=== PATIENT | male | born 1985 | race Caucasian/White ===

== ENCOUNTER 2023-01-09 06:38 | Day surgery (SDC) | payer OTHER ==
[~2023-01-09] VITALS: Ht 170.2 cm; Wt 78.5 kg
[2023-01-09] VITALS (270 sets, daily range): BP systolic 85–169; BP diastolic 40–104
--- NOTE | 2023-01-09 06:45 | NUR ---
pt arrived with , ambulatory with steady gait, in no distress. Discussed POC with pt and . all questions answered. initiated iv, labs drawn, EKG performed. Pt tolerated well.
[2023-01-09 08:14] LABS: BASO% 0.6 % (0-3); HEMATOCRIT 41.7 % (39.0-50.0); HEMOGLOBIN 13.4 g/dl (14.0-18.0); IMMATURE GRANULOCYTES 0.2 % (0.0-5.0); LYMPH% 31.2 % (15-41); MEAN CELL VOLUME 98.3 fL CALC (80.0-100.0); MEAN CORPUSCULAR HGB 31.6 pG CALC (26.0-32.0); MEAN CORPUSCULAR HGB CONC 32.1 g/dL CAL (32.0-36.0); MONO% 9.5 % (2-13); NEUT# 2.86 thou/uL (1.82-7.42); NEUT% 54.5 % (42-76); RED BLOOD COUNT 4.24 mill/uL (4.70-6.10)
[2023-01-09 08:34] LABS: ALBUMIN 4.4 g/dL (3.2-5.0); ALKALINE PHOSPHATASE 48 u/l (38-126); ANION GAP 10 (6-22 (CALC)); BILIRUBIN, TOTAL 0.6 mg/dL (0.2-1.3); BUN 16 mg/dL (9-20); BUN/CREATININE RATIO 19 (12-20 (CALC)); CARBON DIOXIDE 28 mmol/l (22-30); CHLORIDE 102 mmol/l (95-108); CREATININE 0.9 mg/dL (0.7-1.3); GFR FOR AFR.AMER. > 60 ML/MIN (>=60 (CALC)); GFR OTHER RACES > 60 ML/MIN (>=60 (CALC)); POTASSIUM 4.2 mmol/l (3.5-5.1); SGOT/AST 30 u/l (17-59); SODIUM 136 mmol/l (137-146); TOTAL PROTEIN 6.9 g/dL (6.3-8.2)
--- NOTE | 2023-01-09 11:25 | NUR ---
Induction Note Patient to ANR procedure room. Time out performed at 1125. Patient placed on monitors, Aleksandra hugger, bilateral wrist restraints applied for ET tube protection. Versed 5mg given IV push at 1126 Tourniquet applied to RIGHT arm Lidocaine 100mg given at 1127 IV push followed by Rocoronium 10mg at 1128 IV push and held for 90 seconds. Propofol bolus of 160mg given at 1130 IV push. Succinylcholine 80mg given IV push at 1131. Smooth intubation with 7.5 ETT. Positive CO2. Positive Auscultation for air exchange. Patient placed on ventilator for spontaneous ventilation. Placed on Propofol IV drip at 1132. OG inserted. Positive air on auscultation. Positive gastric content. Stomach washed at this time.
--- NOTE | 2023-01-09 11:40 | NUR ---
OG close note Stomach washed at this time. Naltrexone 50 mg with Clonidine 0.1 mg via OG tube. OG will be clamped for 45 minutes.
--- NOTE | 2023-01-09 12:25 | NUR ---
OG open note OG open at this time. Gastric content draining into drainage bag. OG to drain for 45 minutes. Propofol will be titrated down based on patient.
--- NOTE | 2023-01-09 13:15 | NUR ---
OG close note Stomach washed at this time. Naltrexone 50 mg with Clonidine 0.2 mg via OG tube. OG will be clamped for 45 minutes.
--- NOTE | 2023-01-09 14:45 | NUR ---
OG close note Stomach washed at this time. Naltrexone 50 mg with Clonidine 0.2 mg via OG tube. OG will be clamped for 45 minutes.
[2023-01-09] MEDS ORDERED: NALTREXONE50 MG PO (16:13)
[2023-01-09] MEDS ORDERED: CLONIDINE0.1 MG PO (16:13)
[2023-01-09] MEDS ORDERED: KLONOPIN2 MG PO (16:14)
--- NOTE | 2023-01-09 16:15 | NUR ---
OG close note Stomach washed at this time. Naltrexone 25 mg with Clonidine 0.1 mg via OG tube. OG will be clamped for 45 minutes.
--- NOTE | 2023-01-09 17:29 | NUR ---
OG close note Stomach washed at this time. Naltrexone 50 mg with Clonidine 0.2 mg via OG tube. OG will be clamped for 45 minutes.
--- NOTE | 2023-01-09 18:00 | NUR ---
straight cathed for 500cc dark yellow urine.ms notified.
--- NOTE | 2023-01-09 19:12 | NUR ---
Extubation note Closing medications given Benadryl 50mg IV push, Decadron 10mg IV push,Magnesium 4 grams IV, Zofran 8mg IV push, Octreotide 100mcg SC. Stomach washed out prior to extubation. Suctioned gastric content. OG removed. Patient extubated. Propofol Discontinued. Wrist restraints removed. Aleksandra hugger Removed. See ANR Moderate sedate recovery record for further notes and assessment.
--- NOTE | 2023-01-09 20:13 | NUR ---
RECEIVED PATIENT TO ROOM 288. RESTING, EYES CLOSED. VSS, NO DISTRESS NOTED. BEDSIDE REPORT RECEIVED FROM RHODA BURGOS. BED IN LOW POSITION, ALARM ACTIVATED.
--- NOTE | 2023-01-09 20:18 | NUR ---
PT TRANSPORTED TO [facility] VIA STRETCHER WITH SPONTANEOUS RESPIRATION IN NO DISTRESS. VSS. BEDSIDE REPORT TO RITCHIE.
--- NOTE | 2023-01-09 23:30 | NUR ---
BLOOD PRESSURE 149/101. CLONIDINE 0.2MG GIVEN, IVF'S STOPPED AT THIS TIME. WILL CONTINUE TO MONITOR.
--- NOTE | 2023-01-10 00:57 | NUR ---
PATIENT RESTING QUIETLY, EYES CLOSED. NO DISTRESS NOTED AT THIS TIME.
[2023-01-10 01:09] VITALS: BP 140/96
[2023-01-10 03:43] VITALS: BP 146/98
--- NOTE | 2023-01-10 03:56 | NUR ---
RESTING EYES CLOSED; EASILY AROUSED. VITALS OBTAINED AT THIS TIME TEMP 100.4, TYLENOL GIVEN. PATIENT C/O BACK PAIN 09/01 TORADOL IV ADMINISTERED. BLOOD PRESSURE REMAINS ELEVATED WILL FOLLOW UP WITH PHYSICIAN. NO FURTHER CONCERNS EXPRESSED AT THIS TIME. PATIENT STABLE, CALL LIGHT WITHIN REACH.
[2023-01-10 05:35] LABS: HEMATOCRIT 41.2 % (39.0-50.0); HEMOGLOBIN 13.8 g/dl (14.0-18.0); IMMATURE GRANULOCYTES 0.7 % (0.0-5.0); LYMPH% 3.9 % (15-41); MEAN CELL VOLUME 94.1 fL CALC (80.0-100.0); MEAN CORPUSCULAR HGB 31.5 pG CALC (26.0-32.0); MEAN CORPUSCULAR HGB CONC 33.5 g/dL CAL (32.0-36.0); MONO% 3.9 % (2-13); NEUT# 15.15 thou/uL (1.82-7.42); NEUT% 91.5 % (42-76); RED BLOOD COUNT 4.38 mill/uL (4.70-6.10); RED CELL DISTRI WIDTH 11.4 % (11.5-15.5)
[2023-01-10 05:54] LABS: ALBUMIN 4.7 g/dL (3.2-5.0); ALKALINE PHOSPHATASE 57 u/l (38-126); BUN 15 mg/dL (9-20); BUN/CREATININE RATIO 19 (12-20 (CALC)); CHLORIDE 103 mmol/l (95-108); CREATININE 0.8 mg/dL (0.7-1.3); GFR FOR AFR.AMER. > 60 ML/MIN (>=60 (CALC)); GFR OTHER RACES > 60 ML/MIN (>=60 (CALC)); MAGNESIUM 2.1 mg/dL (1.6-2.3); POTASSIUM 4.2 mmol/l (3.5-5.1); SGOT/AST 48 u/l (17-59); SODIUM 135 mmol/l (137-146); TOTAL PROTEIN 7.2 g/dL (6.3-8.2)
[2023-01-10 06:00] LABS: ANION GAP 15 (6-22 (CALC)); CARBON DIOXIDE 21 mmol/l (22-30)
--- NOTE | 2023-01-10 07:10 | NUR ---
REPORT FROM RITCHIE DUONG. ASSUMED PT CARE.
[2023-01-10 07:22] VITALS: BP 117/55
--- NOTE | 2023-01-10 07:52 | NUR ---
PT MEDICATED ORDERED. ASSISTED PT TO BATHROOM. PT AMBULATED WITH STEADY GAIT AND VOIDED LARGE AMOUNT WITHOUT DIFFICULTY. PT BACK INTO BED. CALL LIGHT WITHIN REACH. BED ALARM ON FOR SAFETY. WILL CONTINUE TO MONITOR.
--- NOTE | 2023-01-10 09:26 | NUR ---
Dr. Sheffield telephoned and updated with overnight events and PRN medications, morning labs and vital signs, ANR pulmonary physicianhydro technician and current progress on discharge requirements. Expected discharge today. Discharge plan in progress.
--- NOTE | 2023-01-10 11:25 | NUR ---
PT UP OOB AMBULATING IN HALLWAY. PT STEADY ON FEET BUT C/O DIZZINESS AND BACK ACHE. PT DENIES ANY HX OF BACK PAIN. ASSISTED PT BACK INTO BED. MEDICATED WITH PRN TORADOL AT THIS TIME. CALL LIGHT WITHIN REACH. WILL CONTINUE TO MONITOR.
--- NOTE | 2023-01-10 11:48 | NUR ---
Patient's support person (SP) telephoned with overnight update and to begin discharge planning. All questions answered satisfactorily, no concerns presented. SP agreeable to discharge plan.
[2023-01-10 12:37] VITALS: BP 136/75
--- NOTE | 2023-01-10 13:40 | NUR ---
Dr. Sheffield to bedside for post-procedure evaluation. Report from RHODA Phillips. Discharge process reviewed, discharge requirements discussed with patient including ambulation, tolerance of food and oral fluids, and personal hygeine. Cleared for discharge after 1600.
--- NOTE | 2023-01-10 15:20 | NUR ---
IV site discontinued, cath intact. No edema , no redness, voices no discomfort.
--- NOTE | 2023-01-10 15:42 | NUR ---
Discharge instructions given. Patient verbalizes understanding of same. Discharged in stable condition via Ambulatory to Home with family. All belongings sent with pt.
--- NOTE | 2023-01-10 16:05 | NUR ---
Patient discharged in stable condition. Reports no nausea, tolerated PO intake, ambulatory with stable gait. IV removed x2. Patient remained alert and conversive during discharge teaching. states undestanding of discharge instructions and offers no further questions. Medication education given at length and patient and stated understanding.
== END 2023-01-10 15:47 | disposition home or self-care (01) | DRG 897 ==
LOC: MS2 06:38 → ANR 06:38 → MS2 06:41 → ANR 11:00 → MS2 17:22 → ANR 01-10 15:47
PROVIDERS: ATTEND Anesthesiology Critical Care Medicine
DX: F11.20 Opioid dependence, uncomplicated (principal)
CPT/HCPCS: J2354; J3475